=== PATIENT | male | born 1985 | race African-American/Black ===

== ENCOUNTER 2017-02-24 01:07 | Emergency (ER) | payer MEDICAID ==
[~2017-02-24] VITALS: Ht 172.7 cm; Wt 111.2 kg
[~2017-02-24 01:07] MED LIST: ASPI-650 PO; CARV6.252 PO; FURO-92 PO; FURO-93 PO; LISI-167 PO; POTA10CA PO; PRED10TA PO; SPIR25TA3 PO
[2017-02-24] MEDS ORDERED: ALBU1.25 NEB (01:18)
[2017-02-24] MEDS ORDERED: methylPREDNISolone SOD SUCC 125 MG/2 ML IVP ONE (01:30)
[2017-02-24] MEDS: ALBUTEROL/IPRATROPIUM 2.5MG/0.5MG, 3 ML NPPB SCH (01:33)
[2017-02-24] MEDS ORDERED: methylPREDNISolone SOD SUCC 125 MG/2 ML ONE (01:34)
[2017-02-24 01:54] LABS: ASPARTATE AMINO TRANSFERASE 42 U/L (15-37); BLOOD UREA NITROGEN 12 mg/dL (7-18)
[2017-02-24] MEDS ORDERED: ENALAPRILAT 1.25 MG/ML, 2ML IV ONE (03:00)
[2017-02-24 04:12] VITALS: BP 174/127
== END 2017-02-24 04:37 | disposition home or self-care (01) ==
LOC: ED 01:35
DX: J44.9 Chronic obstructive pulmonary disease, unspecified (principal); J45.41 Moderate persistent asthma with (acute) exacerbation; I10 Essential (primary) hypertension; F17.210 Nicotine dependence, cigarettes, uncomplicated
CPT/HCPCS: 36415; 71010; 80053; 83880; 85025; 94640; 96374; 96375; 99285; J2930; J7620

== ENCOUNTER 2017-08-22 09:55 | Inpatient (IN) | payer MEDICAID, OTHER ==
[~2017-08-22] VITALS: Ht 172.7 cm; Wt 103.9 kg
[~2017-08-22 09:55] MED LIST changes: +ALBU1.25 NEB
[2017-08-22] MEDS ORDERED: SODIUM CHLORIDE FLUSH 10ML SYR IVF ONE (10:30)
[2017-08-22] MEDS ORDERED: ASPIRIN 81 MG TABLET CHEW PO ONE (10:30)
[2017-08-22] MEDS ORDERED: MORPHINE SULFATE 4 MG/ML, 1ML IVPush PRN (10:30)
[2017-08-22] MEDS ORDERED: ONDANSETRON 2MG/ML, 2ML IVPush ONE (10:30)
[2017-08-22] MEDS ORDERED: ASPIRIN 81 MG TABLET CHEW ONE (10:48)
[2017-08-22] MEDS ORDERED: MORPHINE SULFATE 4 MG/ML, 1ML ONE (10:48)
[2017-08-22] MEDS ORDERED: ONDANSETRON 2MG/ML, 2ML ONE (10:48)
[2017-08-22 11:00] LABS: BASOPHILS # (AUTO) 0.08 x10^3/uL (0-0.1); BASOPHILS % (AUTO) 1 % (0-1); EOSINOPHILS # (AUTO) 0.47 x10^3/uL (0-0.4); EOSINOPHILS % (AUTO) 4 % (1-7); LYMPHOCYTES # (AUTO) 1.35 x10^3/uL (1-3.4); LYMPHOCYTES % (AUTO) 13 % (22-44); MD NO; MEAN CORPUSCULAR HEMOGLOBIN 32.6 pg (27.5-34.5); MEAN CORPUSCULAR HGB CONC 33.8 g/dL (33.2-36.2); MEAN CORPUSCULAR VOLUME 96.5 fL (81-97); MEAN PLATELET VOLUME 9.1 fL (7.4-10.4); MONOCYTES % (AUTO) 7 % (2-9); NEUTROPHILS # (AUTO) 7.95 x10^3/uL (1.8-6.8); NEUTROPHILS % (AUTO) 75 % (42-75); PLATELET COUNT 202 x10^3/uL (130-400); RED BLOOD COUNT 4.79 x10^6/uL (4.38-5.82); RED CELL DISTRIBUTION WIDTH 14.4 % (9.4-14.8)
[2017-08-22 11:12] LABS: ANION GAP 5 mmol/L (5-15); CALCIUM 8.1 mg/dL (8.5-10.1); CHLORIDE 107 mmol/L (98-107)
[2017-08-22 11:17] LABS: TROPONIN I 0.063 ng/mL (0.000-0.045)
[2017-08-22] MEDS ORDERED: FUROSEMIDE 40 MG/4 ML ONE (11:22)
[2017-08-22] MEDS ORDERED: FUROSEMIDE 40 MG/4 ML IV ONE (11:30)
[2017-08-22 11:46] LABS: BILIRUBIN, DIRECT 0.1 mg/dL (0.1-0.2)
[2017-08-22 11:50] LABS: BILIRUBIN,INDIRECT 0.4 mg/dL (0.0-2.0); BILIRUBIN,TOTAL 0.5 mg/dL (0.2-1.0); TOTAL PROTEIN 5.9 g/dL (6.4-8.2)
[2017-08-22 13:35] VITALS: BP 125/88
[2017-08-22] MEDS: ENOXAPARIN 40 MG/0.4 ML SQ SCH ×2 (14:30→15:55)
[2017-08-22] MEDS ORDERED: ONDANSETRON ODT 4 MG PO PRN (14:30)
[2017-08-22] MEDS ORDERED: ACETAMINOPHEN 325 MG TABLET PO PRN (14:30)
[2017-08-22] MEDS ORDERED: ONDANSETRON 2MG/ML, 2ML IVPush PRN (14:30)
[2017-08-22] MEDS ORDERED: ALBUTEROL SULFATE 2.5 MG/3 ML ONE (14:53)
[2017-08-22] MEDS: ALBUTEROL SULFATE 2.5 MG/3 ML NPPB SCH ×2 (15:00→19:12)
[2017-08-22 15:30] LABS: TROPONIN I 0.062 ng/mL (0.000-0.045)
[2017-08-22 18:48] VITALS: BP 138/95
[2017-08-22 18:51] LABS: AMPHETAMINE SCREEN, URINE Negative (Negative); BARBITURATE SCREEN, URINE Negative (Negative); BENZODIAZEPINE SCREEN, URINE Positive (Negative); CANNABINOID SCREEN, URINE Positive (Negative); COCAINE SCREEN, URINE Positive (Negative); METHADONE SCREEN, URINE Negative (Negative); OPIATE SCREEN, URINE Positive (Negative)
[2017-08-22] MEDS: METOPROLOL TARTRATE 25 MG TABLET PO SCH (20:11)
[2017-08-22 21:34] LABS: TROPONIN I 0.064 ng/mL (0.000-0.045)
[2017-08-23 00:20] VITALS: BP 103/76
[2017-08-23] MEDS: ASPIRIN 325 MG TABLET PO SCH (04:31)
[2017-08-23] MEDS: METOPROLOL TARTRATE 25 MG TABLET PO SCH ×2 (04:31→18:00)
[2017-08-23 04:39] VITALS: BP 107/76
[2017-08-23 05:11] LABS: BASOPHILS # (AUTO) 0.08 x10^3/uL (0-0.1); BASOPHILS % (AUTO) 1 % (0-1); EOSINOPHILS # (AUTO) 0.29 x10^3/uL (0-0.4); EOSINOPHILS % (AUTO) 3 % (1-7); LYMPHOCYTES # (AUTO) 1.52 x10^3/uL (1-3.4); LYMPHOCYTES % (AUTO) 14 % (22-44); MD NO; MEAN CORPUSCULAR HEMOGLOBIN 32.2 pg (27.5-34.5); MEAN CORPUSCULAR VOLUME 97.4 fL (81-97); MEAN PLATELET VOLUME 9.3 fL (7.4-10.4); MONOCYTES # (AUTO) 0.72 x10^3/uL (0.2-0.8); MONOCYTES % (AUTO) 7 % (2-9); NEUTROPHILS % (AUTO) 76 % (42-75); PLATELET COUNT 213 x10^3/uL (130-400); RED BLOOD COUNT 5.04 x10^6/uL (4.38-5.82); RED CELL DISTRIBUTION WIDTH 14.9 % (9.4-14.8)
[2017-08-23 05:26] LABS: CHLORIDE 106 mmol/L (98-107)
[2017-08-23 05:42] LABS: ALANINE AMINOTRANSFERASE 23 U/L (12-78); ALBUMIN 2.9 g/dL (3.4-5.0); ALKALINE PHOSPHATASE 88 U/L (45-117); ANION GAP 10 mmol/L (5-15); BILIRUBIN,TOTAL 0.8 mg/dL (0.2-1.0); CALCIUM 7.9 mg/dL (8.5-10.1); CHOL/HDL RATIO 3.9; CHOLESTEROL, TOTAL 120 mg/dL (140-239); FREE T4 (FREE THYROXINE) 0.76 ng/dL (0.76-1.46); HDL CHOL % 26 % (26-37); HDL CHOLESTEROL (DIRECT) 31 mg/dL (40-60); LDL CHOLESTEROL,CALCULATED 67 mg/dL (54-169); LDL/HDL RATIO 2.2 (0.5-3.0); TOTAL PROTEIN 5.8 g/dL (6.4-8.2); TRIGLYCERIDES 112 mg/dL (50-200); VLDL CHOLESTEROL 22 mg/dL (0-25)
[2017-08-23] MEDS: ALBUTEROL SULFATE 2.5 MG/3 ML NPPB SCH ×2 (07:00→10:33)
[2017-08-23] MEDS: LISINOPRIL 5 MG TABLET PO SCH (08:53)
[2017-08-23 08:55] VITALS: BP 148/100
[2017-08-23] MEDS ORDERED: FUROSEMIDE 40 MG/4 ML IV SCH (09:00)
[2017-08-23 13:01] VITALS: BP 86/60
[2017-08-23] MEDS: ENOXAPARIN 40 MG/0.4 ML SQ SCH (14:30)
[2017-08-23 18:19] VITALS: BP 118/84
[2017-08-23 19:57] VITALS: BP 115/80
[2017-08-24 02:00] VITALS: BP 116/83
[2017-08-24] MEDS: ALBUTEROL SULFATE 2.5 MG/3 ML NPPB PRN ×2 (03:30→18:20)
[2017-08-24] MEDS: ASPIRIN 325 MG TABLET PO SCH (03:50)
[2017-08-24] MEDS: METOPROLOL TARTRATE 25 MG TABLET PO SCH (03:50)
[2017-08-24 05:17] LABS: ANION GAP 8 mmol/L (5-15); CALCIUM 8.3 mg/dL (8.5-10.1); CHLORIDE 104 mmol/L (98-107)
[2017-08-24 05:18] LABS: CREATININE 1.42 mg/dL (0.7-1.3)
[2017-08-24 05:33] LABS: BASOPHILS # (AUTO) 0.07 x10^3/uL (0-0.1); BASOPHILS % (AUTO) 1 % (0-1); EOSINOPHILS # (AUTO) 0.38 x10^3/uL (0-0.4); EOSINOPHILS % (AUTO) 3 % (1-7); LYMPHOCYTES # (AUTO) 2.44 x10^3/uL (1-3.4); LYMPHOCYTES % (AUTO) 18 % (22-44); MD NO; MEAN CORPUSCULAR HEMOGLOBIN 32.1 pg (27.5-34.5); MEAN CORPUSCULAR HGB CONC 32.8 g/dL (33.2-36.2); MEAN CORPUSCULAR VOLUME 97.8 fL (81-97); MEAN PLATELET VOLUME 9.3 fL (7.4-10.4); MONOCYTES # (AUTO) 1.02 x10^3/uL (0.2-0.8); MONOCYTES % (AUTO) 8 % (2-9); NEUTROPHILS # (AUTO) 9.74 x10^3/uL (1.8-6.8); NEUTROPHILS % (AUTO) 71 % (42-75); PLATELET COUNT 210 x10^3/uL (130-400); RED BLOOD COUNT 5.16 x10^6/uL (4.38-5.82); RED CELL DISTRIBUTION WIDTH 14.8 % (9.4-14.8)
[2017-08-24] MEDS ORDERED: REGADENOSON 0.4 MG/5 ML SYRINGE ONE (08:11)
[2017-08-24 08:14] VITALS: BP 116/93
[2017-08-24] MEDS ORDERED: FUROSEMIDE 20 MG/2 ML IV SCH (09:00)
[2017-08-24 09:37] LABS: TROPONIN I 0.397 ng/mL (0.000-0.045)
[2017-08-24] MEDS: LISINOPRIL 5 MG TABLET PO SCH (10:08)
[2017-08-24] MEDS: FUROSEMIDE 20 MG/2 ML IV SCH ×2 (10:09→19:59)
[2017-08-24] MEDS: ENOXAPARIN 40 MG/0.4 ML SQ SCH (12:42)
[2017-08-24 13:15] VITALS: BP 139/92
[2017-08-24] MEDS: CARVEDILOL 3.125 MG TABLET PO SCH (18:41)
[2017-08-24 19:55] VITALS: BP 123/80
[2017-08-25 01:21] VITALS: BP 123/86
[2017-08-25 02:33] VITALS: BP 126/71
[2017-08-25 05:17] LABS: BASOPHILS # (AUTO) 0.02 x10^3/uL (0-0.1); BASOPHILS % (AUTO) 0 % (0-1); EOSINOPHILS # (AUTO) 0.52 x10^3/uL (0-0.4); EOSINOPHILS % (AUTO) 5 % (1-7); LYMPHOCYTES # (AUTO) 1.51 x10^3/uL (1-3.4); LYMPHOCYTES % (AUTO) 14 % (22-44); MD NO; MEAN CORPUSCULAR HEMOGLOBIN 32.6 pg (27.5-34.5); MEAN CORPUSCULAR HGB CONC 33.5 g/dL (33.2-36.2); MEAN CORPUSCULAR VOLUME 97.2 fL (81-97); MEAN PLATELET VOLUME 9.2 fL (7.4-10.4); MONOCYTES # (AUTO) 0.75 x10^3/uL (0.2-0.8); MONOCYTES % (AUTO) 7 % (2-9); NEUTROPHILS % (AUTO) 74 % (42-75); PLATELET COUNT 191 x10^3/uL (130-400); RED BLOOD COUNT 4.79 x10^6/uL (4.38-5.82); RED CELL DISTRIBUTION WIDTH 14.3 % (9.4-14.8)
[2017-08-25 05:18] LABS: ALBUMIN 2.7 g/dL (3.4-5.0); ANION GAP 8 mmol/L (5-15); CHLORIDE 104 mmol/L (98-107)
[2017-08-25 05:23] LABS: ALANINE AMINOTRANSFERASE 120 U/L (12-78); ALKALINE PHOSPHATASE 114 U/L (45-117); BILIRUBIN,TOTAL 0.6 mg/dL (0.2-1.0); CREATININE 1.03 mg/dL (0.7-1.3); TOTAL PROTEIN 5.5 g/dL (6.4-8.2)
[2017-08-25] MEDS: CARVEDILOL 3.125 MG TABLET PO SCH (06:17)
[2017-08-25] MEDS: ASPIRIN 81 MG TABLET EC PO SCH (06:17)
[2017-08-25 08:32] VITALS: BP 148/85
[2017-08-25] MEDS: ALBUTEROL SULFATE 2.5 MG/3 ML NPPB PRN ×2 (08:36→16:18)
[2017-08-25] MEDS: LISINOPRIL 5 MG TABLET PO SCH (09:44)
[2017-08-25] MEDS: FUROSEMIDE 20 MG/2 ML IV SCH (09:45)
[2017-08-25] MEDS: SPIRONOLACTONE 25 MG TABLET PO SCH (09:45)
[2017-08-25] MEDS: ENOXAPARIN 40 MG/0.4 ML SQ SCH (14:30)
[2017-08-25 14:50] VITALS: BP 142/91
[2017-08-25 17:37] VITALS: BP 126/88
[2017-08-25] MEDS: CARVEDILOL 12.5 MG TABLET PO SCH (17:39)
[2017-08-25] MEDS ORDERED: CARVEDILOL 6.25 MG TABLET PO SCH (18:00)
[2017-08-25 19:46] VITALS: BP 134/90
[2017-08-25] MEDS ORDERED: FUROSEMIDE 20 MG/2 ML IV SCH (21:00)
[2017-08-26 01:11] VITALS: BP_SYST 154; BP_SYST 176; BP_DIAS 111; BP_DIAS 116
[2017-08-26] MEDS ORDERED: LABETALOL 5MG/ML, 20ML IVPush PRN (01:30)
[2017-08-26 02:07] LABS: RAPID INFLUENZA A Negative (Negative); RAPID INFLUENZA B Negative (Negative)
[2017-08-26 02:33] LABS: BASOPHILS # (AUTO) 0.04 x10^3/uL (0-0.1); BASOPHILS % (AUTO) 0 % (0-1); EOSINOPHILS # (AUTO) 0.29 x10^3/uL (0-0.4); EOSINOPHILS % (AUTO) 3 % (1-7); LYMPHOCYTES # (AUTO) 0.86 x10^3/uL (1-3.4); LYMPHOCYTES % (AUTO) 8 % (22-44); MD NO; MEAN CORPUSCULAR HEMOGLOBIN 32.1 pg (27.5-34.5); MEAN CORPUSCULAR HGB CONC 33.5 g/dL (33.2-36.2); MEAN CORPUSCULAR VOLUME 95.9 fL (81-97); MEAN PLATELET VOLUME 9.1 fL (7.4-10.4); MONOCYTES # (AUTO) 0.82 x10^3/uL (0.2-0.8); MONOCYTES % (AUTO) 8 % (2-9); NEUTROPHILS # (AUTO) 8.93 x10^3/uL (1.8-6.8); NEUTROPHILS % (AUTO) 82 % (42-75); PLATELET COUNT 175 x10^3/uL (130-400); RED BLOOD COUNT 4.68 x10^6/uL (4.38-5.82); RED CELL DISTRIBUTION WIDTH 14.5 % (9.4-14.8)
[2017-08-26 02:39] LABS: ALBUMIN 2.7 g/dL (3.4-5.0); ANION GAP 9 mmol/L (5-15); CALCIUM 8.1 mg/dL (8.5-10.1); CHLORIDE 102 mmol/L (98-107); CREATININE 1.04 mg/dL (0.7-1.3)
[2017-08-26 03:04] VITALS: BP_SYST 156; BP_SYST 163; BP_DIAS 110; BP_DIAS 111
[2017-08-26 06:12] VITALS: BP 132/95
[2017-08-26] MEDS: ASPIRIN 81 MG TABLET EC PO SCH (06:16)
[2017-08-26] MEDS: CARVEDILOL 12.5 MG TABLET PO SCH (06:16)
[2017-08-26 06:22] LABS: MICROSCOPIC NOT IND
[2017-08-26 06:26] LABS: CULTURE INDICATED? NO
[2017-08-26] MEDS ORDERED: CEFTRIAXONE PMX 2GM/50ML 50 ML IV SCH (07:00)
[2017-08-26] MEDS ORDERED: DOXYCYCLINE 100 MG in DEXTROSE 5% 250 ML IV SCH (07:00)
[2017-08-26] MEDS ORDERED: FUROSEMIDE 40 MG TABLET PO SCH (07:30)
[2017-08-26] MEDS: SPIRONOLACTONE 25 MG TABLET PO SCH (08:58)
[2017-08-26] MEDS: LISINOPRIL 5 MG TABLET PO SCH (08:58)
[2017-08-26] MEDS ORDERED: DOXYCYCLINE 100MG TABLET PO ONE (09:00)
== END 2017-08-26 11:15 | disposition left against medical advice (07) | DRG 291 ==
LOC: ED 11:49 → EDIP 12:27 → 5SO 13:23
PROVIDERS: ADMIT Family Medicine; ATTEND Family Medicine
DX: I11.0 Hypertensive heart disease with heart failure (principal); E43 Unspecified severe protein-calorie malnutrition; I42.9 Cardiomyopathy, unspecified; I50.43 Acute on chronic combined systolic (congestive) and diastolic (congestive) heart failure; J44.9 Chronic obstructive pulmonary disease, unspecified; F12.90 Cannabis use, unspecified, uncomplicated; D72.829 Elevated white blood cell count, unspecified; Z53.21 Procedure and treatment not carried out due to patient leaving prior to being seen by health care provider; R74.8 Abnormal levels of other serum enzymes; Z79.82 Long term (current) use of aspirin; Z82.49 Family history of ischemic heart disease and other diseases of the circulatory system; Z91.19 Patient's noncompliance with other medical treatment and regimen; Z83.3 Family history of diabetes mellitus; F14.188 Cocaine abuse with other cocaine-induced disorder
CPT/HCPCS: 36415; 71045; 76700; 78452; 80048; 80053; 80061; 80076; 80307; 81003; 82040; 83605; 83880; 84439; 84443; 84484; 85025; 87040; 87070; 87205; 87400; 93005; 93017; 93306; 94640; 96374; 96375; J0696; J1650; J1940; J2405; J2785; J7613; A9502; C9898

== ENCOUNTER 2017-08-26 19:00 | Emergency (ER) | payer MEDICAID, OTHER, SELFPAY ==
[~2017-08-26] VITALS: Ht 172.7 cm; Wt 104.7 kg
[2017-08-26 19:01] VITALS: BP 142/87
[2017-08-26] MEDS ORDERED: ALBUTEROL SULFATE 2.5 MG/3 ML ONE (19:43)
[2017-08-26] MEDS ORDERED: KETOROLAC 30 MG/1 ML ONE (19:48)
[2017-08-26 20:00] LABS: BASOPHILS # (AUTO) 0.02 x10^3/uL (0-0.1); BASOPHILS % (AUTO) 0 % (0-1); EOSINOPHILS # (AUTO) 0.11 x10^3/uL (0-0.4); EOSINOPHILS % (AUTO) 1 % (1-7); LYMPHOCYTES # (AUTO) 0.97 x10^3/uL (1-3.4); LYMPHOCYTES % (AUTO) 7 % (22-44); MD NO; MEAN CORPUSCULAR HEMOGLOBIN 31.5 pg (27.5-34.5); MEAN CORPUSCULAR HGB CONC 32.8 g/dL (33.2-36.2); MEAN CORPUSCULAR VOLUME 95.9 fL (81-97); MEAN PLATELET VOLUME 8.8 fL (7.4-10.4); MONOCYTES # (AUTO) 1.39 x10^3/uL (0.2-0.8); MONOCYTES % (AUTO) 11 % (2-9); NEUTROPHILS # (AUTO) 10.77 x10^3/uL (1.8-6.8); NEUTROPHILS % (AUTO) 81 % (42-75); PLATELET COUNT 193 x10^3/uL (130-400); RED BLOOD COUNT 4.75 x10^6/uL (4.38-5.82); RED CELL DISTRIBUTION WIDTH 14.8 % (9.4-14.8)
[2017-08-26] MEDS ORDERED: KETOROLAC 30 MG/1 ML IM ONE (20:00)
[2017-08-26] MEDS ORDERED: ALBUTEROL SULFATE 2.5 MG/3 ML NPPB ONE (20:00)
[2017-08-26 20:09] LABS: ALBUMIN 2.7 g/dL (3.4-5.0); ANION GAP 6 mmol/L (5-15); CALCIUM 7.9 mg/dL (8.5-10.1); CHLORIDE 104 mmol/L (98-107); CREATININE 0.99 mg/dL (0.7-1.3)
[2017-08-26 20:17] LABS: TROPONIN I 0.147 ng/mL (0.000-0.045)
[2017-08-26] MEDS ORDERED: AZITHROMYCIN 250 MG TABLET ONE (22:07)
[2017-08-26] MEDS ORDERED: AZITHROMYCIN 500 MG TABLET PO ONE (22:30)
== END 2017-08-26 22:19 | disposition home or self-care (01) ==
LOC: EDBD 19:00 → EDUNIT# 19:00 → ED 20:51
DX: J15.9 Unspecified bacterial pneumonia (principal); I50.1 Left ventricular failure, unspecified; D72.829 Elevated white blood cell count, unspecified; R07.89 Other chest pain; J45.909 Unspecified asthma, uncomplicated; I11.0 Hypertensive heart disease with heart failure
CPT/HCPCS: 36415; 71045; 80048; 82040; 83880; 84484; 85025; 93005; 94640; 96372; 99285; J1885; J7613

== ENCOUNTER 2017-09-06 01:10 | Emergency (ER) | payer MEDICAID ==
[~2017-09-06] VITALS: Ht 172.7 cm; Wt 109.5 kg
[2017-09-06] MEDS ORDERED: IBUPROFEN 200 MG TABLET ONE (01:48)
[2017-09-06] MEDS ORDERED: IBUPROFEN 200 MG TABLET PO ONE (02:00)
[2017-09-06 02:03] LABS: BASOPHILS # (AUTO) 0.08 x10^3/uL (0-0.1); BASOPHILS % (AUTO) 0 % (0-1); EOSINOPHILS # (AUTO) 0.44 x10^3/uL (0-0.4); EOSINOPHILS % (AUTO) 3 % (1-7); LYMPHOCYTES # (AUTO) 1.33 x10^3/uL (1-3.4); LYMPHOCYTES % (AUTO) 8 % (22-44); MD NO; MEAN CORPUSCULAR HEMOGLOBIN 31.6 pg (27.5-34.5); MEAN CORPUSCULAR HGB CONC 32.8 g/dL (33.2-36.2); MEAN CORPUSCULAR VOLUME 96.4 fL (81-97); MONOCYTES # (AUTO) 0.71 x10^3/uL (0.2-0.8); MONOCYTES % (AUTO) 4 % (2-9); NEUTROPHILS # (AUTO) 15.22 x10^3/uL (1.8-6.8); NEUTROPHILS % (AUTO) 86 % (42-75); PLATELET COUNT 265 x10^3/uL (130-400); RED BLOOD COUNT 4.83 x10^6/uL (4.38-5.82); RED CELL DISTRIBUTION WIDTH 14.1 % (9.4-14.8)
[2017-09-06] MEDS ORDERED: POTA20TA6 PO (02:23)
[2017-09-06] MEDS ORDERED: DOXY100T9 PO (02:23)
[2017-09-06] MEDS ORDERED: CARV12.52 PO (02:23)
[2017-09-06] MEDS ORDERED: FURO40TA6 PO (02:23)
[2017-09-06] MEDS ORDERED: LISI-167 PO (02:23)
[2017-09-06] MEDS ORDERED: SPIR25TA3 PO (02:23)
[2017-09-06 02:26] LABS: ALBUMIN 2.4 g/dL (3.4-5.0); ANION GAP 5 mmol/L (5-15); CALCIUM 8.3 mg/dL (8.5-10.1); CHLORIDE 104 mmol/L (98-107); CREATININE 1.06 mg/dL (0.7-1.3)
[2017-09-06 02:29] LABS: TROPONIN I 0.089 ng/mL (0.000-0.045)
[2017-09-06 03:38] VITALS: BP 138/114
== END 2017-09-06 03:38 | disposition home or self-care (01) ==
LOC: ED 01:24
DX: R06.09 Other forms of dyspnea (principal); J43.9 Emphysema, unspecified; I50.9 Heart failure, unspecified; I11.0 Hypertensive heart disease with heart failure; I25.2 Old myocardial infarction; F14.129 Cocaine abuse with intoxication, unspecified; I42.0 Dilated cardiomyopathy; Z60.9 Problem related to social environment, unspecified; Z91.14 Patient's other noncompliance with medication regimen
CPT/HCPCS: 36415; 71045; 80048; 82040; 83880; 84484; 85025; 93005; 99285

== ENCOUNTER 2017-09-12 02:05 | Emergency (ER) | payer MEDICAID ==
[~2017-09-12] VITALS: Ht 172.7 cm; Wt 100.0 kg
[~2017-09-12 02:05] MED LIST changes: +CARV12.52 PO; +DOXY100T9 PO; +FURO40TA6 PO; +POTA20TA6 PO
[2017-09-12] MEDS ORDERED: ASPIRIN 81 MG TABLET CHEW PO ONE (02:30)
[2017-09-12] MEDS ORDERED: ASPIRIN 81 MG TABLET CHEW ONE (02:41)
[2017-09-12 02:43] LABS: BASOPHILS # (AUTO) 0.03 x10^3/uL (0-0.1); BASOPHILS % (AUTO) 0 % (0-1); EOSINOPHILS # (AUTO) 0.41 x10^3/uL (0-0.4); EOSINOPHILS % (AUTO) 3 % (1-7); LYMPHOCYTES # (AUTO) 1.57 x10^3/uL (1-3.4); LYMPHOCYTES % (AUTO) 13 % (22-44); MD NO; MEAN CORPUSCULAR HEMOGLOBIN 31.3 pg (27.5-34.5); MEAN CORPUSCULAR HGB CONC 33.1 g/dL (33.2-36.2); MEAN CORPUSCULAR VOLUME 94.6 fL (81-97); MEAN PLATELET VOLUME 8.1 fL (7.4-10.4); MONOCYTES # (AUTO) 0.88 x10^3/uL (0.2-0.8); MONOCYTES % (AUTO) 7 % (2-9); NEUTROPHILS # (AUTO) 9.15 x10^3/uL (1.8-6.8); NEUTROPHILS % (AUTO) 76 % (42-75); PLATELET COUNT 245 x10^3/uL (130-400); RED BLOOD COUNT 4.58 x10^6/uL (4.38-5.82); RED CELL DISTRIBUTION WIDTH 14.9 % (9.4-14.8)
[2017-09-12 02:55] LABS: ALBUMIN 2.5 g/dL (3.4-5.0); ANION GAP 5 mmol/L (5-15); CALCIUM 7.8 mg/dL (8.5-10.1); CHLORIDE 103 mmol/L (98-107); CREATININE 1.15 mg/dL (0.7-1.3)
[2017-09-12 02:59] LABS: TROPONIN I 0.047 ng/mL (0.000-0.045)
[2017-09-12 04:02] VITALS: BP 154/114
== END 2017-09-12 04:05 | disposition home or self-care (01) ==
LOC: ED 02:15
DX: I50.9 Heart failure, unspecified (principal); R07.9 Chest pain, unspecified; J44.9 Chronic obstructive pulmonary disease, unspecified
CPT/HCPCS: 36415; 80048; 82040; 83880; 84484; 85025; 93005; 99285

== ENCOUNTER 2017-09-16 01:23 | Inpatient (IN) | payer MEDICAID ==
[~2017-09-16] VITALS: Ht 170.2 cm; Wt 100.7 kg
[2017-09-16] MEDS ORDERED: SODIUM CHLORIDE FLUSH 10ML SYR IVF ONE (02:00)
[2017-09-16 02:08] LABS: BASOPHILS # (AUTO) 0.06 x10^3/uL (0-0.1); BASOPHILS % (AUTO) 0 % (0-1); EOSINOPHILS # (AUTO) 0.11 x10^3/uL (0-0.4); EOSINOPHILS % (AUTO) 1 % (1-7); LYMPHOCYTES # (AUTO) 2.35 x10^3/uL (1-3.4); LYMPHOCYTES % (AUTO) 17 % (22-44); MD NO; MEAN CORPUSCULAR HEMOGLOBIN 30.5 pg (27.5-34.5); MEAN CORPUSCULAR HGB CONC 32.2 g/dL (33.2-36.2); MEAN CORPUSCULAR VOLUME 94.9 fL (81-97); MEAN PLATELET VOLUME 9.2 fL (7.4-10.4); MONOCYTES # (AUTO) 1.27 x10^3/uL (0.2-0.8); MONOCYTES % (AUTO) 9 % (2-9); NEUTROPHILS # (AUTO) 10.05 x10^3/uL (1.8-6.8); NEUTROPHILS % (AUTO) 73 % (42-75); PLATELET COUNT 267 x10^3/uL (130-400); RED BLOOD COUNT 4.85 x10^6/uL (4.38-5.82); RED CELL DISTRIBUTION WIDTH 15.3 % (9.4-14.8)
[2017-09-16] MEDS ORDERED: SODIUM CHLORIDE FLUSH 10ML SYR IVF PRN (02:30)
[2017-09-16 02:57] LABS: ALBUMIN 2.7 g/dL (3.4-5.0); ANION GAP 8 mmol/L (5-15); CHLORIDE 103 mmol/L (98-107)
[2017-09-16 03:02] LABS: ALANINE AMINOTRANSFERASE 21 U/L (12-78); ALKALINE PHOSPHATASE 100 U/L (45-117); BILIRUBIN,TOTAL 1.4 mg/dL (0.2-1.0); CREATININE 1.26 mg/dL (0.7-1.3); TOTAL PROTEIN 6.1 g/dL (6.4-8.2)
[2017-09-16 03:07] LABS: TROPONIN I 0.602 ng/mL (0.000-0.045)
[2017-09-16 03:29] VITALS: BP 162/121
[2017-09-16] MEDS ORDERED: ONDANSETRON 2MG/ML, 2ML IVPush PRN (05:00)
[2017-09-16] MEDS: ENOXAPARIN 40 MG/0.4 ML SQ SCH ×2 (05:17→05:29)
[2017-09-16] MEDS ORDERED: ALBUTEROL SULFATE 2.5 MG/3 ML NPPB PRN (05:30)
[2017-09-16 06:59] LABS: TROPONIN I 0.571 ng/mL (0.000-0.045)
[2017-09-16] MEDS: ACETAMINOPHEN 325 MG TABLET PO PRN ×2 (09:24→21:33)
[2017-09-16] MEDS: FUROSEMIDE 40 MG/4 ML IV SCH ×2 (09:24→17:03)
[2017-09-16] MEDS: CARVEDILOL 12.5 MG TABLET PO SCH ×2 (09:24→21:34)
[2017-09-16] MEDS: SPIRONOLACTONE 25 MG TABLET PO SCH (09:25)
[2017-09-16] MEDS: LISINOPRIL 10 MG TABLET PO SCH (09:25)
[2017-09-16 09:33] VITALS: BP 132/80
[2017-09-16 10:48] LABS: TROPONIN I 0.445 ng/mL (0.000-0.045)
[2017-09-16 13:51] VITALS: BP 132/93
[2017-09-16 18:51] LABS: AMPHETAMINE SCREEN, URINE Negative (Negative); BARBITURATE SCREEN, URINE Negative (Negative); BENZODIAZEPINE SCREEN, URINE Negative (Negative); CANNABINOID SCREEN, URINE Negative (Negative); COCAINE SCREEN, URINE Positive (Negative); METHADONE SCREEN, URINE Negative (Negative); OPIATE SCREEN, URINE Negative (Negative)
[2017-09-16 20:27] VITALS: BP 143/98
[2017-09-17 01:37] VITALS: BP 128/90
[2017-09-17 02:15] LABS: ANION GAP 8 mmol/L (5-15); CALCIUM 7.8 mg/dL (8.5-10.1); CHLORIDE 101 mmol/L (98-107)
[2017-09-17 07:49] LABS: BASOPHILS # (AUTO) 0.04 x10^3/uL (0-0.1); BASOPHILS % (AUTO) 0 % (0-1); EOSINOPHILS # (AUTO) 0.29 x10^3/uL (0-0.4); EOSINOPHILS % (AUTO) 2 % (1-7); LYMPHOCYTES # (AUTO) 1.93 x10^3/uL (1-3.4); LYMPHOCYTES % (AUTO) 15 % (22-44); MD NO; MEAN CORPUSCULAR HEMOGLOBIN 31.3 pg (27.5-34.5); MEAN CORPUSCULAR HGB CONC 32.9 g/dL (33.2-36.2); MEAN CORPUSCULAR VOLUME 95.1 fL (81-97); MEAN PLATELET VOLUME 9.6 fL (7.4-10.4); MONOCYTES # (AUTO) 0.87 x10^3/uL (0.2-0.8); MONOCYTES % (AUTO) 7 % (2-9); NEUTROPHILS # (AUTO) 9.79 x10^3/uL (1.8-6.8); NEUTROPHILS % (AUTO) 76 % (42-75); PLATELET COUNT 213 x10^3/uL (130-400); RED CELL DISTRIBUTION WIDTH 15.2 % (9.4-14.8)
[2017-09-17] MEDS: FUROSEMIDE 40 MG/4 ML IV SCH ×2 (08:06→17:17)
[2017-09-17] MEDS: CARVEDILOL 12.5 MG TABLET PO SCH ×2 (08:06→20:03)
[2017-09-17] MEDS: LISINOPRIL 10 MG TABLET PO SCH (08:07)
[2017-09-17] MEDS: SPIRONOLACTONE 25 MG TABLET PO SCH (08:07)
[2017-09-17 09:20] VITALS: BP 133/97
[2017-09-17 15:50] VITALS: BP 127/90
[2017-09-17 19:31] VITALS: BP 131/83
[2017-09-18 01:04] VITALS: BP 143/83
[2017-09-18] MEDS: ACETAMINOPHEN 325 MG TABLET PO PRN (04:11)
[2017-09-18 04:42] LABS: BASOPHILS # (AUTO) 0.07 x10^3/uL (0-0.1); BASOPHILS % (AUTO) 1 % (0-1); EOSINOPHILS # (AUTO) 0.37 x10^3/uL (0-0.4); EOSINOPHILS % (AUTO) 3 % (1-7); LYMPHOCYTES # (AUTO) 1.57 x10^3/uL (1-3.4); LYMPHOCYTES % (AUTO) 14 % (22-44); MD NO; MEAN CORPUSCULAR HEMOGLOBIN 31.3 pg (27.5-34.5); MEAN CORPUSCULAR HGB CONC 32.9 g/dL (33.2-36.2); MEAN CORPUSCULAR VOLUME 95.2 fL (81-97); MEAN PLATELET VOLUME 9.2 fL (7.4-10.4); MONOCYTES # (AUTO) 0.94 x10^3/uL (0.2-0.8); MONOCYTES % (AUTO) 8 % (2-9); NEUTROPHILS # (AUTO) 8.68 x10^3/uL (1.8-6.8); NEUTROPHILS % (AUTO) 75 % (42-75); PLATELET COUNT 240 x10^3/uL (130-400); RED BLOOD COUNT 4.62 x10^6/uL (4.38-5.82); RED CELL DISTRIBUTION WIDTH 15.1 % (9.4-14.8)
[2017-09-18] MEDS: ENOXAPARIN 40 MG/0.4 ML SQ SCH ×2 (04:47→12:01)
[2017-09-18 04:52] LABS: CHLORIDE 101 mmol/L (98-107)
[2017-09-18 05:02] LABS: ALANINE AMINOTRANSFERASE 18 U/L (12-78); ALBUMIN 2.6 g/dL (3.4-5.0); ALKALINE PHOSPHATASE 125 U/L (45-117); ANION GAP 7 mmol/L (5-15); BILIRUBIN,TOTAL 0.7 mg/dL (0.2-1.0); CALCIUM 8.1 mg/dL (8.5-10.1); CREATININE 1.01 mg/dL (0.7-1.3)
[2017-09-18 06:49] VITALS: BP 136/103
[2017-09-18] MEDS: FUROSEMIDE 40 MG/4 ML IV SCH (09:07)
[2017-09-18] MEDS: CARVEDILOL 12.5 MG TABLET PO SCH (09:08)
[2017-09-18] MEDS: SPIRONOLACTONE 25 MG TABLET PO SCH (09:08)
[2017-09-18] MEDS: LISINOPRIL 10 MG TABLET PO SCH (09:08)
[2017-09-18] MEDS ORDERED: ACETAMINOPHEN 325 MG TABLET PO PRN (12:00)
[2017-09-18] MEDS ORDERED: FURO-92 PO (13:11)
[2017-09-18] MEDS ORDERED: SPIR25TA PO (13:11)
[2017-09-18] MEDS ORDERED: POTA10TA11 PO (13:11)
[2017-09-18] MEDS ORDERED: CARV12.543 PO (13:11)
[2017-09-18] MEDS ORDERED: LISI-167 PO (13:11)
[2017-09-18 15:44] VITALS: BP 118/88
== END 2017-09-18 17:07 | disposition home or self-care (01) | DRG 292 ==
LOC: ED 01:38 → EDIP 02:25 → 5SO 03:20
PROVIDERS: ADMIT Emergency Medicine; ATTEND Hospitalist
DX: I11.0 Hypertensive heart disease with heart failure (principal); I47.2 Ventricular tachycardia; E44.0 Moderate protein-calorie malnutrition; I24.8 Other forms of acute ischemic heart disease; I27.81 Cor pulmonale (chronic); W18.30XA Fall on same level, unspecified, initial encounter; D72.829 Elevated white blood cell count, unspecified; I50.43 Acute on chronic combined systolic (congestive) and diastolic (congestive) heart failure; I42.9 Cardiomyopathy, unspecified; F12.90 Cannabis use, unspecified, uncomplicated; J44.9 Chronic obstructive pulmonary disease, unspecified; Z82.49 Family history of ischemic heart disease and other diseases of the circulatory system; Z83.3 Family history of diabetes mellitus; Z91.14 Patient's other noncompliance with medication regimen; Z91.19 Patient's noncompliance with other medical treatment and regimen
CPT/HCPCS: 36415; 71045; 80048; 80053; 80307; 83690; 83735; 83880; 84100; 84443; 84484; 85025; 93005; 93970; 94640; 99285; J1650; J1940; J7613

== ENCOUNTER 2017-11-05 06:43 | Inpatient (IN) | payer MEDICAID ==
[~2017-11-05] VITALS: Ht 172.7 cm; Wt 92.2 kg
[~2017-11-05 06:43] MED LIST changes: +CARV12.543 PO; +POTA10TA11 PO; +SPIR25TA PO
[2017-11-05] MEDS ORDERED: methylPREDNISolone SOD SUCC 125 MG/2 ML IVP ONE (07:30)
[2017-11-05] MEDS ORDERED: ALBUTEROL SULFATE 2.5 MG/3 ML ONE ×3 (07:31→15:47)
[2017-11-05] MEDS ORDERED: methylPREDNISolone SOD SUCC 125 MG/2 ML ONE (07:49)
[2017-11-05 07:52] LABS: BASOPHILS # (AUTO) 0.05 x10^3/uL (0-0.1); BASOPHILS % (AUTO) 0 % (0-1); EOSINOPHILS # (AUTO) 0.74 x10^3/uL (0-0.4); EOSINOPHILS % (AUTO) 6 % (1-7); LYMPHOCYTES # (AUTO) 2.17 x10^3/uL (1-3.4); LYMPHOCYTES % (AUTO) 17 % (22-44); MD NO; MEAN CORPUSCULAR HEMOGLOBIN 30.7 pg (27.5-34.5); MEAN CORPUSCULAR HGB CONC 32.3 g/dL (33.2-36.2); MEAN CORPUSCULAR VOLUME 94.9 fL (81-97); MEAN PLATELET VOLUME 8.1 fL (7.4-10.4); MONOCYTES # (AUTO) 0.84 x10^3/uL (0.2-0.8); MONOCYTES % (AUTO) 7 % (2-9); NEUTROPHILS # (AUTO) 9.14 x10^3/uL (1.8-6.8); NEUTROPHILS % (AUTO) 71 % (42-75); PLATELET COUNT 247 x10^3/uL (130-400); RED BLOOD COUNT 5.13 x10^6/uL (4.38-5.82); RED CELL DISTRIBUTION WIDTH 16.7 % (9.4-14.8)
[2017-11-05] MEDS ORDERED: ALBUTEROL SULFATE 2.5 MG/3 ML NPPB PRN (08:00)
[2017-11-05 08:02] LABS: ALANINE AMINOTRANSFERASE 17 U/L (12-78); ALBUMIN 3.3 g/dL (3.4-5.0); ANION GAP 5 mmol/L (5-15); CALCIUM 8.2 mg/dL (8.5-10.1); CHLORIDE 107 mmol/L (98-107)
[2017-11-05 08:06] LABS: ALKALINE PHOSPHATASE 124 U/L (45-117); BILIRUBIN,TOTAL 0.4 mg/dL (0.2-1.0); TOTAL PROTEIN 6.8 g/dL (6.4-8.2); TROPONIN I 0.032 ng/mL (0.000-0.045)
[2017-11-05] MEDS ORDERED: FUROSEMIDE 20 MG/2 ML IV SCH (09:30)
[2017-11-05] MEDS ORDERED: FUROSEMIDE 20 MG/2 ML ONE (09:54)
[2017-11-05] MEDS ORDERED: LABETALOL 5MG/ML, 20ML IVPush PRN (10:00)
[2017-11-05] MEDS ORDERED: ACETAMINOPHEN 325 MG TABLET PO PRN (10:00)
[2017-11-05] MEDS ORDERED: DIPHENHYDRAMINE 25 MG CAPSULE PO PRN (10:00)
[2017-11-05] MEDS ORDERED: ONDANSETRON ODT 4 MG PO PRN (10:00)
[2017-11-05] MEDS ORDERED: ENALAPRILAT 1.25 MG/ML, 2ML IVPush PRN (10:00)
[2017-11-05] MEDS ORDERED: TEMPLATE NON-FORMULARY MED. (Albuterol Sulfate (Albuterol Sulfate**) 1 VIAL) NEB PRN (10:00)
[2017-11-05] MEDS: HEPARIN 5,000 UNITS/ML, 1ML SQ SCH ×3 (10:00→17:46)
[2017-11-05] MEDS ORDERED: DOCUSATE 100 MG CAPSULE PO PRN (10:00)
[2017-11-05] MEDS: NICOTINE 7 MG/24 HR PATCH.TD24 TD SCH ×2 (10:00→10:31)
[2017-11-05] MEDS: SENNA/DOCUSATE TABLET PO SCH (10:00)
[2017-11-05] MEDS ORDERED: ONDANSETRON 2MG/ML, 2ML IVPush PRN (10:00)
[2017-11-05] MEDS: LISINOPRIL 10 MG TABLET PO SCH (10:31)
[2017-11-05] MEDS: CARVEDILOL 12.5 MG TABLET PO SCH ×2 (10:31→21:39)
[2017-11-05 10:40] VITALS: BP 146/112
[2017-11-05 14:30] VITALS: BP 166/102
[2017-11-05 15:24] VITALS: BP 168/107
[2017-11-05] MEDS ORDERED: methylPREDNISolone SOD SUCC 125 MG/2 ML IVPush SCH (16:00)
[2017-11-05] MEDS: FUROSEMIDE 20 MG/2 ML IV SCH (16:07)
[2017-11-05 19:11] VITALS: BP 159/91
[2017-11-06] MEDS ORDERED: ALBUTEROL SULFATE 2.5 MG/3 ML ONE (00:36)
[2017-11-06] MEDS: methylPREDNISolone SOD SUCC 40 MG/ML IVPush SCH ×2 (00:39→07:58)
[2017-11-06] MEDS: ALBUTEROL SULFATE 2.5 MG/3 ML NPPB PRN ×2 (00:40→11:10)
[2017-11-06] MEDS: HEPARIN 5,000 UNITS/ML, 1ML SQ SCH ×2 (02:00→09:27)
[2017-11-06 02:02] VITALS: BP 165/94
[2017-11-06 05:31] LABS: ANION GAP 7 mmol/L (5-15); CALCIUM 8.4 mg/dL (8.5-10.1); CHLORIDE 104 mmol/L (98-107)
[2017-11-06 05:37] LABS: MEAN CORPUSCULAR HEMOGLOBIN 31.1 pg (27.5-34.5); MEAN CORPUSCULAR HGB CONC 33.1 g/dL (33.2-36.2); MEAN CORPUSCULAR VOLUME 94.1 fL (81-97); PLATELET COUNT 245 x10^3/uL (130-400); RED BLOOD COUNT 5.22 x10^6/uL (4.38-5.82); RED CELL DISTRIBUTION WIDTH 16.3 % (9.4-14.8)
[2017-11-06 05:59] LABS: BASOPHILS # (AUTO) 0.01 x10^3/uL (0-0.1); BASOPHILS % (AUTO) 0 % (0-1); EOSINOPHILS % (AUTO) 0 % (1-7); LYMPHOCYTES # (AUTO) 0.64 x10^3/uL (1-3.4); LYMPHOCYTES % (AUTO) 3 % (22-44); MD SCAN; MONOCYTES # (AUTO) 0.22 x10^3/uL (0.2-0.8); MONOCYTES % (AUTO) 1 % (2-9); NEUTROPHILS # (AUTO) 20.07 x10^3/uL (1.8-6.8); NEUTROPHILS % (AUTO) 96 % (42-75)
[2017-11-06 06:45] VITALS: BP 130/86
[2017-11-06] MEDS: LISINOPRIL 10 MG TABLET PO SCH (07:58)
[2017-11-06] MEDS: FUROSEMIDE 20 MG/2 ML IV SCH (07:58)
[2017-11-06] MEDS: CARVEDILOL 12.5 MG TABLET PO SCH (07:58)
[2017-11-06] MEDS: SENNA/DOCUSATE TABLET PO SCH (07:58)
[2017-11-06] MEDS: NICOTINE 7 MG/24 HR PATCH.TD24 TD SCH (09:27)
[2017-11-06] MEDS ORDERED: IPRA3AMP INH (11:03)
[2017-11-06] MEDS ORDERED: ALBUTEROL/IPRATROPIUM 2.5MG/0.5MG, 3 ML NPPB PRN (11:30)
[2017-11-06 12:08] VITALS: BP 153/94
[2017-11-06] MEDS ORDERED: AZIT500T5 PO (15:44)
[2017-11-06] MEDS ORDERED: AZIT250T89 PO (15:45)
== END 2017-11-06 15:32 | disposition home or self-care (01) | DRG 202 ==
LOC: ED 09:07 → EDIP 09:29 → 4EST 10:12
PROVIDERS: ADMIT Internal Medicine; ATTEND Internal Medicine
DX: J45.41 Moderate persistent asthma with (acute) exacerbation (principal); I42.9 Cardiomyopathy, unspecified; I11.0 Hypertensive heart disease with heart failure; I50.20 Unspecified systolic (congestive) heart failure; B34.9 Viral infection, unspecified; D72.829 Elevated white blood cell count, unspecified; J43.9 Emphysema, unspecified; R09.02 Hypoxemia; Z72.0 Tobacco use; Z82.49 Family history of ischemic heart disease and other diseases of the circulatory system; Z83.3 Family history of diabetes mellitus; Z87.01 Personal history of pneumonia (recurrent)
CPT/HCPCS: 36415; 36600; 71045; 80048; 80053; 82803; 83735; 83880; 84100; 84484; 85025; 93005; 94640; J1644; J7613; J7620; J1940; J2920; J2930

== ENCOUNTER 2019-01-07 03:48 | Emergency (ER) | payer MEDICAID, OTHER ==
[~2019-01-07] VITALS: Ht 177.8 cm; Wt 108.0 kg
[~2019-01-07 03:48] MED LIST changes: +AZIT250T89 PO; +AZIT500T5 PO; +IPRA3AMP30 INH; -SPIR25TA3 PO; +SPIR25TA5 PO
--- NOTE | 2019-01-07 03:54 | NUR ---
pt bib [facility]sa this evening after being d/c home by [facility] for sob. pt was walking home from [facility] and had sudden onset cp. pt stopped ambulance and asked for transport to [facility]. upon arrival to [facility], pt vss. pt resting comfortably in gown in rhoratio; awaiting erp. pt had ekg done at . pt attached to personnel monitor. pt verbalizes understanding of er process. pt has call light within reach at this time.
[2019-01-07] MEDS ORDERED: SODIUM CHLORIDE FLUSH 10ML SYR IVF ONE (04:00)
[2019-01-07 04:20] LABS: BASOPHILS # (AUTO) 0.03 x10^3/uL (0-0.1); BASOPHILS % (AUTO) 0 % (0-1); EOSINOPHILS # (AUTO) 0.51 x10^3/uL (0-0.4); EOSINOPHILS % (AUTO) 6 % (1-7); LYMPHOCYTES # (AUTO) 1.59 x10^3/uL (1-3.4); LYMPHOCYTES % (AUTO) 19 % (22-44); MD NO; MEAN CORPUSCULAR HEMOGLOBIN 32.5 pg (27.5-34.5); MEAN CORPUSCULAR HGB CONC 33.3 g/dL (33.2-36.2); MEAN CORPUSCULAR VOLUME 97.8 fL (81-97); MEAN PLATELET VOLUME 8.8 fL (7.4-10.4); MONOCYTES # (AUTO) 0.62 x10^3/uL (0.2-0.8); MONOCYTES % (AUTO) 7 % (2-9); NEUTROPHILS # (AUTO) 5.81 x10^3/uL (1.8-6.8); NEUTROPHILS % (AUTO) 68 % (42-75); PLATELET COUNT 196 x10^3/uL (130-400); RED BLOOD COUNT 4.32 x10^6/uL (4.38-5.82); RED CELL DISTRIBUTION WIDTH 13.6 % (9.4-14.8)
[2019-01-07 04:32] LABS: ALBUMIN 3.6 g/dL (3.4-5.0); ANION GAP 7 mmol/L (5-15); CALCIUM 8.8 mg/dL (8.5-10.1); CHLORIDE 109 mmol/L (98-107)
[2019-01-07 04:37] LABS: ALANINE AMINOTRANSFERASE 52 U/L (12-78); ALKALINE PHOSPHATASE 103 U/L (45-117); BILIRUBIN,TOTAL 0.3 mg/dL (0.2-1.0); TOTAL PROTEIN 6.9 g/dL (6.4-8.2); TROPONIN I < 0.015 ng/mL (0.000-0.045)
--- NOTE | 2019-01-07 04:50 | NUR ---
pt asleep in [facility] at this time; neil. will continue to monitor pt.
[2019-01-07 05:04] VITALS: BP 120/84
--- NOTE | 2019-01-07 05:40 | NUR ---
pt d/c home with d/c summary. pt ambulates to registration desk with steady gait. pt calling [facility] for ride home. pt provided with len[employer] crackers and juice per pt request. pt denies any other needs pertaining to this visit.
== END 2019-01-07 05:43 | disposition home or self-care (01) ==
LOC: ED 04:07
DX: R07.2 Precordial pain (principal); I11.0 Hypertensive heart disease with heart failure; I50.9 Heart failure, unspecified; J44.9 Chronic obstructive pulmonary disease, unspecified; Z86.73 Personal history of transient ischemic attack (TIA), and cerebral infarction without residual deficits
CPT/HCPCS: 36415; 71045; 80053; 84484; 85025; 93005; 99284